=== PATIENT | female | born 1975 | race American Indian/Alaskan Native ===

== ENCOUNTER 2017-04-11 20:33 | Emergency (ER) | payer OTHER ==
[2017-04-11 20:49] VITALS: BP 148/97
[2017-04-11 21:41] LABS: Basophils % (Auto) 0.6 % (0.0-1.8); Eosinophils % (Auto) 3.8 % (0.0-4.3); Hematocrit 41.6 % (30.3-42.9); Hemoglobin 13.5 gm/dl (10.1-14.3); Mean Corpuscular HGB Conc 32 % (30-34); Mean Corpuscular Hemoglobin 27 pg (28-32); Mean Corpuscular Volume 82 fl (79-97); Platelet Count 233 K/mm3 (140-440); Red Blood Count 5.07 M/mm3 (3.65-5.03); Red Cell Distribution Width 13.4 % (13.2-15.2); White Blood Count 4.8 K/mm3 (4.5-11.0)
[2017-04-11 21:44] LABS: Bilirubin,Urine NEG (Negative); Blood,Urine NEG (Negative); Ketones,Urine NEG (Negative); Leukocyte Esterase,Urine NEG (Negative); Nitrite,Urine NEG (Negative); Protein,Urine <15 mg/dL mg/dL (Negative); Urobilinogen,Urine < 2.0 mg/dL (<2.0)
[2017-04-11 21:50] LABS: Anion Gap 19 mmol/L; BUN/Creatinine Ratio 26.66; Blood Urea Nitrogen 16 mg/dL (7-17); Calcium 9.8 mg/dL (8.4-10.2); Carbon Dioxide 28 mmol/L (22-30); Chloride 92.4 mmol/L (98-107); Glucose 88 mg/dL (65-100); Potassium 4.1 mmol/L (3.6-5.0); Sodium 135 mmol/L (137-145)
[2017-04-11 22:31] LABS: INR 1.24 (0.87-1.13)
[2017-04-11 22:32] LABS: Partial Thromboplastin Time 21.8 Sec. (24.2-36.6)
--- NOTE | 2017-04-11 22:54 | Cat Scan Report ---
FINAL REPORT PROCEDURE: CT HEAD/BRAIN WO CON TECHNIQUE: Computerized tomography of the head was performed without contrast material. HISTORY: HEADACHE COMPARISON: No prior studies are available for comparison. FINDINGS: The visualized portions of the paranasal sinuses are clear. Mastoid air cells are clear. There is no calvarial fracture. There is no hydrocephalus. No acute intracranial hemorrhage or mass effect is seen. There is no evidence of acute CVA. IMPRESSION: No abnormalities are seen.
--- NOTE | 2017-04-15 13:07 | ED Elopement Review ---
ED Pt Elopement review - Results review Lab results: Laboratory Tests 04/11/17 04/11/17 04/11/17 21:00 21:01 21:01 WBC 4.8 RBC 5.07 H Hgb 13.5 Hct 41.6 MCV 82 MCH 27 L MCHC 32 RDW 13.4 Plt Count 233 Lymph % (Auto) 52.5 H [place] % (Auto) 7.8 H Eos % (Auto) 3.8 Baso % (Auto) 0.6 Lymph # 2.5 [place] # 0.4 Eos # 0.2 Baso # 0.0 Seg Neutrophils % 35.3 L Seg Neutrophils # 1.7 L PT INR APTT Sodium 135 L Potassium 4.1 Chloride 92.4 L Carbon Dioxide 28 Anion Gap 19 BUN 16 Creatinine 0.6 L Estimated GFR > 60 BUN/Creatinine Ratio 26.66 Glucose 88 Calcium 9.8 HCG, Qual Urine Color Straw Urine Turbidity Clear Urine pH 7.0 Ur Specific [place] 1.006 Urine Protein <15 mg/dl Urine Glucose (UA) Neg Urine Ketones Neg Urine Blood Neg Urine Nitrite Neg Urine Bilirubin Neg Urine Urobilinogen < 2.0 Ur Leukocyte Esterase Neg Urine WBC (Auto) 1.0 Urine RBC (Auto) 2.0 04/11/17 04/11/17 21:01 21:01 WBC RBC Hgb Hct MCV MCH MCHC RDW Plt Count Lymph % (Auto) [place] % (Auto) Eos % (Auto) Baso % (Auto) Lymph # [place] # Eos # Baso # Seg Neutrophils % Seg Neutrophils # PT 16.2 H INR 1.24 H APTT 21.8 L Sodium Potassium Chloride Carbon Dioxide Anion Gap BUN Creatinine Estimated GFR BUN/Creatinine Ratio Glucose Calcium HCG, Qual Negative Urine Color Urine Turbidity Urine pH Ur Specific [place] Urine Protein Urine Glucose (UA) Urine Ketones Urine Blood Urine Nitrite Urine Bilirubin Urine Urobilinogen Ur Leukocyte Esterase Urine WBC (Auto) Urine RBC (Auto) - Call Back decision Pt Call Back Decision: No action required
== END 2017-04-12 03:37 | disposition left against medical advice (07) ==
LOC: ED 20:33
DX: R53.1 Weakness (principal)
CPT/HCPCS: 36415; 70450; 80048; 81001; 84703; 85025; 85610; 85730

== ENCOUNTER 2017-04-12 11:14 | Emergency (ER) | payer OTHER ==
--- NOTE | 2017-04-12 14:44 | Emergency Department Report ---
ED General Adult HPI - General Chief complaint: Dizziness Stated complaint: WEAKNESS/HBP Time Seen by Provider: 04/12/17 14:41 Source: patient Mode of arrival: Ambulatory Limitations: No Limitations - History of Present Illness Initial comments: Patient states that she felt that she had generalized weakness which lasted for a "short time" yesterday which she believes was related to her blood pressure. She states that her blood pressure medication was changed about 2 weeks ago. She was taking HCTZ 25, lisinopril 20 and amlodipine 10. Yesterday she took all these medications. Today she held her HCTZ. She came to the emergency room yesterday with these complaints. Apparently she left before she was seen by physician. -: Gradual, minutes(s) Consistency: now resolved Improves with: none Worsens with: none Associated Symptoms: denies other symptoms - Related Data Home Medications Medication Instructions Recorded Confirmed Last Taken Hydrochlorothiazide [HCTZ] 25 mg PO QDAY 04/12/17 04/12/17 04/11/17 09:00 Lisinopril [Zestril] 20 mg PO BID 04/12/17 04/12/17 04/12/17 09:00 Naproxen [Naprosyn] 500 mg PO BID PRN 04/12/17 04/12/17 04/12/17 08:00 amLODIPine [Norvasc] 10 mg PO DAILY 04/12/17 04/12/17 04/12/17 09:00 Previous Rx's Medication Instructions Recorded Last Taken Type Lisinopril/Hydrochlorothiazide 1 tab PO QDAY #30 tablet 04/12/17 Unknown Rx [Zestoretic 10-12.5 mg] amLODIPine [Norvasc] 5 mg PO DAILY #30 tab 04/12/17 Unknown Rx Allergies Allergy/AdvReac Type Severity Reaction Status Date / Time No Known Allergies Allergy Verified 04/12/17 11:27 ED Review of Systems ROS: Stated complaint: WEAKNESS/HBP Other details as noted in HPI Constitutional: weakness. denies: chills, fever Eyes: denies: eye pain, eye discharge, vision change ENT: denies: ear pain, throat pain Respiratory: denies: cough, shortness of breath, wheezing Cardiovascular: denies: chest pain, palpitations Endocrine: no symptoms reported Gastrointestinal: denies: abdominal pain, nausea, diarrhea Genitourinary: denies: urgency, dysuria, discharge Musculoskeletal: denies: back pain, joint swelling, arthralgia Skin: denies: rash, lesions Neurological: denies: headache, weakness, paresthesias Psychiatric: denies: anxiety, depression Hematological/Lymphatic: denies: easy bleeding, easy bruising ED Past Medical Hx - Past Medical History Hx Hypertension: Yes - Surgical History Past Surgical History?: No - Social History Smoking Status: Never Smoker Substance Use Type: None - Medications Home Medications: Home Medications Medication Instructions Recorded Confirmed Last Taken Type Hydrochlorothiazide [HCTZ] 25 mg PO QDAY 04/12/17 04/12/17 04/11/17 09:00 History Lisinopril [Zestril] 20 mg PO BID 04/12/17 04/12/17 04/12/17 09:00 History Lisinopril/Hydrochlorothiazide 1 tab PO QDAY #30 tablet 04/12/17 Unknown Rx [Zestoretic 10-12.5 mg] Naproxen [Naprosyn] 500 mg PO BID PRN 04/12/17 04/12/17 04/12/17 08:00 History amLODIPine [Norvasc] 5 mg PO DAILY #30 tab 04/12/17 Unknown Rx amLODIPine [Norvasc] 10 mg PO DAILY 04/12/17 04/12/17 04/12/17 09:00 History ED Physical Exam - General Limitations: No Limitations General appearance: alert, in no apparent distress - Head Head exam: Present: atraumatic, normocephalic - Eye Eye exam: Present: normal appearance. Absent: scleral icterus - ENT ENT exam: Present: normal exam, mucous membranes moist - Neck Neck exam: Present: normal inspection. Absent: tenderness, meningismus - Respiratory Respiratory exam: Present: normal lung sounds bilaterally. Absent: respiratory distress - Cardiovascular Cardiovascular Exam: Present: regular rate, normal rhythm. Absent: systolic murmur, diastolic murmur, rubs, gallop - GI/Abdominal GI/Abdominal exam: Present: soft, normal bowel sounds. Absent: distended, tenderness, guarding, rebound, rigid - Extremities Exam Extremities exam: Present: normal inspection - Back Exam Back exam: Present: normal inspection - Neurological Exam Neurological exam: Present: alert, oriented X3, CN II-XII intact. Absent: motor sensory deficit - Psychiatric Psychiatric exam: Present: normal affect, normal mood - Skin Skin exam: Present: warm, dry, intact, normal color. Absent: rash ED Course Vital Signs 04/12/17 11:22 Temperature 98.3 F Pulse Rate 97 H Respiratory 17 Rate Blood Pressure 141/98 O2 Sat by Pulse 100 Oximetry - Reevaluation(s) Reevaluation #1: Patient is asymptomatic here. I repeated her blood pressure on the right side and got 122/82. Prior to that her blood pressure was somewhat lower but still within the normal range. She had a blood pressure 141/98 on arrival. 04/12/17 14:58 ED Medical Decision Making - Lab Data Laboratory evaluation from yesterday reviewed. All labs were within normal limits. - Radiology Data Radiology results: report reviewed (CT head was normal) - Medical Decision Making I think it is not unlikely that the patient is overmedicated. I'm going to reduce her amlodipine and place her on a lower dose of lisinopril/HCTZ. Critical care attestation.: If time is entered above; I have spent that time in minutes in the direct care of this critically ill patient, excluding procedure time. ED Disposition Clinical Impression: Generalized weakness Adverse effects of medication Qualifiers: Encounter type: initial encounter Qualified Code(s): T88.7XXA - Unspecified adverse effect of drug or medicament, initial encounter Disposition: 01 TO HOME OR SELFCARE Is pt being admited?: No Does the pt Need Aspirin: No Condition: Stable Instructions: Hypertension (ED) Additional Instructions: Check your blood pressure at least daily at a pharmacy or supermarket or if you have a home blood pressure machine check it more frequently at home. Hold current blood pressure medicine. Take Rx as prescribed. It is essential that you follow up on your hypertension and monitor your blood pressure. Return any acute change or problem. Prescriptions: amLODIPine [Norvasc] 5 mg PO DAILY #30 tab Lisinopril/Hydrochlorothiazide [Zestoretic 10-12.5 mg] 1 tab PO QDAY #30 tablet Referrals: JULIA GALLO MD [Primary Care Provider] - 3-5 Days [facility] [Provider Group] - 3-5 Days MADAN PEREZ MD [Staff Physician] - 2-3 Days Time of Disposition: 15:01
[2017-04-12 15:28] VITALS: BP 112/80
== END 2017-04-12 15:30 | disposition home or self-care (01) ==
LOC: ED 11:14
DX: T88.7XXA Unspecified adverse effect of drug or medicament, initial encounter (principal); R53.1 Weakness; Y92.9 Unspecified place or not applicable; I10 Essential (primary) hypertension
CPT/HCPCS: 99282